=== PATIENT | female | born 1970 | race Caucasian/White ===

== ENCOUNTER 2021-02-17 05:41 | Outpatient (CLI) | payer BC ==
[~2021-02-17] VITALS: Ht 165.1 cm; Wt 80.0 kg
[2021-02-17] MEDS ORDERED: MULT-974 PO (11:02)
[2021-02-17] MEDS ORDERED: LISI20TA26 PO (11:02)
[2021-02-17] MEDS ORDERED: ANXIETY PILL (11:02)
== END 2021-02-17 11:06 | disposition home or self-care (01) ==
LOC: PREOP 05:41
PROVIDERS: ATTEND Otolaryngology Otolaryngology/Facial Plastic Surgery
DX: Z01.818 Encounter for other preprocedural examination (principal)

== ENCOUNTER 2021-02-18 07:54 | Day surgery (SDC) | payer BC ==
[~2021-02-18] VITALS: Ht 165.1 cm; Wt 80.0 kg
[~2021-02-18 07:54] MED LIST: ANXIETY PILL; LISI20TA26 PO; MULT-974 PO
[2021-02-18 08:00] VITALS: BP 129/82
[2021-02-18] MEDS ORDERED: LACTATED RINGERS 1,000 ML IV PRN (08:15)
[2021-02-18] MEDS ORDERED: MUPIROCIN 2% OINT 22 GM (BACTROBAN) TUBE ONE (08:51)
[2021-02-18] MEDS ORDERED: LIDOCAINE/EPI 1%-1:200,000 (XYLOCAINE) 30 ML VIAL ONE (08:51)
[2021-02-18 09:04] LABS: BASOPHILS # (AUTO) 0.1 10^3/uL (0.0-0.1); BASOPHILS % (AUTO) 1 % (0-10); EOSINOPHILS # (AUTO) 0.1 10^3/uL (0.0-0.3); EOSINOPHILS % (AUTO) 2 % (0-10); HEMATOCRIT 37 % (35-52); HEMOGLOBIN 12.2 g/dL (11.5-16.0); LYMPHOCYTES # (AUTO) 1.6 10^3/uL (1.0-4.0); LYMPHOCYTES % (AUTO) 23 % (12-44); MEAN CORPUSCULAR HEMOGLOBIN 28 pg (25-34); MEAN CORPUSCULAR HGB CONC 33 g/dL (32-36); MEAN CORPUSCULAR VOLUME 87 fL (80-99); MEAN PLATELET VOLUME 10.1 fL (9.0-12.2); MONOCYTES # (AUTO) 0.6 10^3/uL (0.0-1.0); MONOCYTES % (AUTO) 8 % (0-12); NEUTROPHILS # (AUTO) 4.6 10^3/uL (1.8-7.8); NEUTROPHILS % (AUTO) 67 % (42-75); PLATELET COUNT 371 10^3/uL (130-400); WHITE BLOOD COUNT 6.9 10^3/uL (4.3-11.0)
[2021-02-18] MEDS ORDERED: ROCURONIUM 10 MG/ML 5 ML SYRINGE IV ONE (09:08)
[2021-02-18] MEDS ORDERED: proPOfol 200 MG/20 ML (DIPRIVAN) VIAL IV ONE (09:08)
[2021-02-18] MEDS ORDERED: GLYCOPYRROLATE 0.2 MG/ML (ROBINUL) 2 ML VIAL ONE (09:08)
[2021-02-18] MEDS ORDERED: fentaNYL INJ 100 MCG/2 ML AMP ONE (09:08)
[2021-02-18] MEDS ORDERED: MIDAZOLAM 2 MG/2 ML (VERSED) VIAL ONE (09:08)
[2021-02-18] MEDS ORDERED: LIDOCAINE PF 2% 5 ML (XYLOCAINE) VIAL ONE (09:08)
[2021-02-18] MEDS ORDERED: NEOSTIGMINE 3 MG/3 ML VIAL ONE (09:08)
[2021-02-18] MEDS ORDERED: ONDANSETRON 4 MG/2 ML (SDV) Z0FRAN ONE (09:08)
[2021-02-18 09:10] LABS: POTASSIUM 3.9 MMOL/L (3.6-5.0)
[2021-02-18 09:12] LABS: CALCIUM 9.7 MG/DL (8.5-10.1)
[2021-02-18 09:16] LABS: CREATININE SERUM 0.78 MG/DL (0.60-1.30)
== END 2021-02-18 09:45 | disposition home or self-care (01) ==
LOC: SDC 07:54
PROVIDERS: ATTEND Otolaryngology Otolaryngology/Facial Plastic Surgery
DX: R59.0 Localized enlarged lymph nodes (principal); Z53.8 Procedure and treatment not carried out for other reasons
CPT/HCPCS: 36415; 80048; 84703; 85025; 87081; 93005

== ENCOUNTER 2021-02-24 05:55 | Day surgery (SDC) | payer BC ==
[~2021-02-24] VITALS: Ht 165.1 cm; Wt 80.0 kg
[2021-02-24] VITALS (9 sets, daily range): BP systolic 105–140; BP diastolic 63–93
[2021-02-24] MEDS: LACTATED RINGERS 1,000 ML IV PRN ×2 (06:24→08:37)
[2021-02-24] MEDS ORDERED: ONDANSETRON 4 MG/2 ML (SDV) Z0FRAN ONE (06:42)
[2021-02-24] MEDS ORDERED: SEVOFLURANE (ULTANE) 15 ML INHAL SOLN ONE ×2 (06:42→07:42)
[2021-02-24] MEDS ORDERED: fentaNYL INJ 100 MCG/2 ML AMP ONE (06:42)
[2021-02-24] MEDS ORDERED: LIDOCAINE PF 2% 5 ML (XYLOCAINE) VIAL ONE (06:42)
[2021-02-24] MEDS ORDERED: proPOfol 200 MG/20 ML (DIPRIVAN) VIAL IV ONE (06:42)
[2021-02-24] MEDS ORDERED: MIDAZOLAM 2 MG/2 ML (VERSED) VIAL ONE (06:42)
[2021-02-24] MEDS ORDERED: MIDAZOLAM 2 MG/2 ML (VERSED) VIAL IVP ONE (07:00)
[2021-02-24] MEDS ORDERED: MUPIROCIN 2% OINT 22 GM (BACTROBAN) TUBE ONE (07:02)
[2021-02-24] MEDS ORDERED: LIDOCAINE/EPI 1%-1:200,000 (XYLOCAINE) 30 ML VIAL ONE (07:02)
--- NOTE | 2021-02-24 07:19 | Progress Note-Pre Operative ---
Pre-Operative Progress Note H&P Reviewed The H&P was reviewed, patient examined and no changes noted. Date Seen by Provider: Feb 24, 2021 Time Seen by Provider: 06:30 Date H&P Reviewed: Feb 24, 2021 Time H&P Reviewed: 06:30 Pre-Operative Diagnosis: Chronic Right Posterior Cervical Lympadenopathy SAVI RODGERS MD Feb 24, 2021 07:19
--- NOTE | 2021-02-24 07:20 | Progress Note-Post Operative ---
Post-Operative Progess Note Surgeon (s)/[employer] (s) Surgeon SAVI RODGERS MD [employer] n/a Pre-Operative Diagnosis Chronic Right Posterior Cervical Lympadenopathy Post-Operative Diagnosis same Post-Op Procedure Note Date of Procedure: Feb 24, 2021 Name of Procedure Performed: Excisional Biopsy of Right Posterior Cervical Lymph Node Description & Findings Description and Findings: n/a Anesthesia Type gen Estimated Blood Loss minimal Packing none. Specimen(s) collected/removed lymph node fresh to pathology to be treated as possible lymphoma SAVI RODGERS MD Feb 24, 2021 07:20
[2021-02-24] MEDS ORDERED: ACETAMINOPHEN 325 MG TABLET PO PRN (07:30)
[2021-02-24] MEDS ORDERED: HYDROcodone/APAP 5 MG/325 MG (LORTAB) TAB PO PRN (07:30)
--- NOTE | 2021-02-24 08:21 | Anesthesia-General Post-Op ---
General Patient Condition Mental Status/LOC: Same as Preop Cardiovascular: Satisfactory Nausea/Vomiting: Absent Respiratory: Satisfactory Pain: Controlled Complications: Absent Post Op Complications Complications None Follow Up Care/Instructions Patient Instructions None needed. Anesthesia/Patient Condition Patient Condition Patient is doing well, no complaints, stable vital signs, no apparent adverse anesthesia problems. No complications reported per nursing. RIA REN CRNA Feb 24, 2021 08:21
[2021-02-24] MEDS ORDERED: ONDANSETRON 4 MG/2 ML (SDV) Z0FRAN IVP PRN (08:30)
[2021-02-24] MEDS ORDERED: MEPERIDINE (DEMEROL) INJ 50 MG/ML IVP ONE (08:30)
[2021-02-24] MEDS ORDERED: morphine INJ 10 MG/ML 1ML (SYR OR VIAL) IVP ONE (08:30)
[2021-02-24] MEDS ORDERED: fentaNYL INJ 100 MCG/2 ML AMP IVP ONE (08:30)
[2021-02-24] MEDS ORDERED: ACHD5005 PO (08:32)
== END 2021-02-24 10:20 ==
LOC: SDC 05:55
PROVIDERS: ATTEND Otolaryngology Otolaryngology/Facial Plastic Surgery
DX: R59.0 Localized enlarged lymph nodes (principal); I10 Essential (primary) hypertension; F41.9 Anxiety disorder, unspecified; Z79.899 Other long term (current) drug therapy
CPT/HCPCS: 84703; 87081